=== PATIENT | male | born 1985 | race Caucasian/White ===

== ENCOUNTER 2022-09-23 13:41 | Outpatient (CLI) | payer OTHER, SELFPAY | END 2022-09-23 13:42 | disposition home or self-care (01) | LOC: LKVREF 13:41 | PROVIDERS: PCP Family Medicine; Visit Provider Family Medicine | DX: Z00.00 Encounter for general adult medical examination without abnormal findings (principal); R79.89 Other specified abnormal findings of blood chemistry; R53.83 Other fatigue; I10 Essential (primary) hypertension | CPT/HCPCS: 80076 ==

== ENCOUNTER 2023-01-02 08:38 | Outpatient (CLI) | payer OTHER, SELFPAY | END 2023-01-02 08:39 | disposition home or self-care (01) | LOC: LKVREF 08:39 | PROVIDERS: PCP Family Medicine; Visit Provider Family Medicine | DX: K21.9 Gastro-esophageal reflux disease without esophagitis (principal) | CPT/HCPCS: 87338 ==

== ENCOUNTER 2024-11-09 07:05 | Emergency (ER) | payer BC, SELFPAY ==
--- OUTSIDE RECORDS SUMMARY | 2024-09-26 10:00 | XMS_ITS | Encounter Summary ---
Author Organization [facility] Address [address] [place] [address] Care Team Providers Care Middle [employer] Spanish Teacher Name Role Phone No Primary/Referring, Phy Primary Care Provider Unavailable Reason for Visit * Reason Comments Mask Fit Encounter Details Date Type Department Care Team (Late st Contact Info) Description 09/26/2024 10:00 AM CDT [facility] [place] [facility] [address], [address] [place] [address] Grecia Parish, RT Social History Tobacco Use Types Packs/Day Years Used Date Smoking Tobacco: Never Smokeless Tobacco: Never Alcohol Use Standard Drinks/Week Comments Yes 0 (1 standard drink = 0.6 oz pur e alcohol) monthly PHQ-2 Answer Date Recorded PHQ-2 Score 0 04/28/2021 Sex and Gender Information Value Date Recorded Sex Assigned at Male 01/28/2021 5:27 PM CDT Legal Sex Male 4:50 AM CDT Gender Identity Male 01/28/2021 5:27 PM CDT Sexual Orientation Straight 01/28/2021 5: 27 PM CDT documented as of this encounter Progress Notes * Grecia Parish RT - 09/26/2024 10:00 AM CDT Mask Fit Patient came in for his mask fitting appointment. His current mask does not fit well as he has recently lost 30 lobs, additionally, it has caused a previous sore on the bridge of his nose. Patient not interested in nasal pillows/cushions as he has tried them in the past. He has chosen totry the small N20 nasal cushion - size small, and also try an Airtouch N20 nasal cushion - size small to see which is most comfortable for him. Tried both on in this appointment. Order completed in [facility]. documented in this encounter Plan of Treatment Not on file documented as of this encounter Visit Diagnoses Not on filedocumented in this encounter Care Teams Middle [employer] Spanish Teacher Relationship Specialty Start Date End Date No Primary/Referring, Phy PCP - General 03/03/20 documented as of this encounter
[2024-11-09] VITALS (16 sets, daily range): BP systolic 71–139; BP diastolic 42–78; PULSE 56–77; RESP 16–18; TEMP 36.3; O2SAT 96–100; BMI 26.8
--- OUTSIDE RECORDS SUMMARY | 2024-11-09 07:07 | XMS_ITS | Clinical Summary ---
Author Organization [facility] Address [address] [place] [address] Care Team Providers Care Chief Dispatcher Service Name Role Phone Pcp, No Primary Care Provider Unavailabl e Allergies No known active allergies Social History Tobacco Use Types Packs/Day Years Used Date Smoking Tobacco: Never Assessed Sex and Gender Information Value Date Recorded Sex Assigned at Not on file Legal Sex Male 9:15 AM CDT Gender Identity Not on file Sexual Orientation Not on file Last Filed Vital Signs Vital Sign Reading Time Taken Comments Blood Pressure 109/68 01/18/2021 10:42 AM CDT Pulse 88 01/18/2021 10:42 AM CDT Temperature 36.8 C (98.2 F) 01/18/2021 9:27 AM CDT Respiratory Rate 16 01/18/2021 9:27 AM CDT Oxygen Saturation 95% 01/18/2021 10:42 AM CDT Inhaled Oxygen Concentration - - Weight 113.4 kg (250 lb) 01/18/2021 9:27 AM CDT Height 172.7 cm (5' 8) 01/18/2021 9:27 AM CDT Body Mass Index 38.01 01/18/2021 9:27 AM CDT Plan of Treatment Health Maintenance Due Date Last Done Comments (IA) Tdap 1996 Depression screening for age 12+ 1997 HIV for age 15-65 2000 BMI (ht and wt on same day) for age 18+ 07/29/2003 Hepatitis C screening for ag e 18-79 07/29/2003 Hepatitis B series for 19+ ( 1 of 3 - 19+ 3-dose series) 2004 Tetanus booster 2005 Lipids for age 35-44 2020 COVID-19 vaccine series ( season) 2023 04/13/2021 Influenza Vaccine (Season Ended) 2024 Pneumococcal series for age 6-49 Aged Out No longer eligible based on patient's age to complete this topic Care Teams Chief Dispatcher Service Relationship Specialty Start Date End Date Pcp, No . PCP - General 04/18/24
--- OUTSIDE RECORDS SUMMARY | 2024-11-09 07:07 | XMS_ITS | Clinical Summary ---
Author Organization [facility] Address [address] [place] [address] Care Team Providers Care Human Relations Manager Name Role Phone No Primary/Referring, Phy Primary Care Provider Unavailable Source Comments You are receiving this document as you are listed as the primary care provider,follow-up provider, or the patient has been referred to you for consultation.This is in compliance with the Medicare and[facility] EHR Incentive Program,which states Providers who transition their patient to another setting of careor provider of care or refers their patient to another provider of care shouldprovide summary care record for each transition of care or referral. [employer] Allergies No known active allergies Medications cetirizine (AKA ZYRTEC) 10 MG tablet Take 1 Tablet (10 mg) by mouth daily. 4 Active fluticasone (FLOVENT HFA) 44 mcg/actuation inhalerIndication s:Mild intermittent asthma with exacerbation (HRC) Inhale 2 Puffs two times a day. Rinse mouth/gargle after use 1 Each 2 0 Active fluticasone propionate (FLONASE) 50 MCG/ACT nasal solutionIndicatio ns:Allergic rhinitis, unspecified seasonality, unspecified trigger,Encounter for medication refill Place 2 Sprays into both nostrils daily for 90 days. 48 g 2 Active ALBUterol sulfate HFA 108 (90 Base) MCG/ACT inhalerIndication s:Asthma, unspecified asthma severity, unspecified whether complicated, unspecified whether persistent (HRC) Inhale 2 Puffs every 6 hours as needed for Wheezing (Inhale 2 puffs every 6 hours as needed for Wheezing.). 1 Each 2 Active Active Problems Problem Noted Date Diagnosed Date Moderate obstructive sleep apnea 09/24/2020 Overview (09/24/2020): Setting: Auto 08/22 Supplied by: Lilian Urrutia PSG done: 09-03-20 HST RDI/DULCE 26.9 Lowest O2 Sat: 85% Essential (primary) hypertension 07/15/2020 Asthma 09/14/2002 Overview (11/30/2016): Asthma NOS Allergic rhinitis 09/14/2002 Overview (11/30/2016): Rhinitis Allergic NOS Resolved Problems Problem Noted Date Diagnosed Date Resolved Date Elevated TSH 02/07/2017 07/15/2020 Encounters Date Type Department Care Team Description 10/28/2024 [facility] [employer] [place] [address] Tatianna Nagy PA-C UPDATE 09/26/2024 10:00 AM CDT Home Medical Services [facility] [address], [address] [place] [address] Grecia Parish RT 09/17/2024 9:00 AM CDT [facility] [address] [facility] [address] [place] [address] Rebecca Nguyen, REFINERY OPERATOR HELPER CRUDE UNIT, RESULTS ENGINEER Moderate obstructive sleep apnea (Primary Dx); Overweight (BMI 25.0-29.9) (HRC); Essential hypertension (HRC) 09/16/2024 [facility] [address] [place] [address] Tatianna Nagy PAAva Medication Questions (Patient is calling asking if he should be stopping the lisinopril his bp today 97/63 100/64. His weight is down to 187.4 today. ) from Last 3 Months Immunizations Immunization Administration Dates Next Due DTP 10/29/1990, 8,01/30/1986,1985,1985 Flu Vac (3+ yrs) 01/02/2012 Flu Vac Preserv Free (3+yrs) 12/09/2017, 01/02/2012,01/22/2010,2008 Flublok (RIV4) 01/24/2020 HepB Adult (Engerix-B, 20+ y rs, 3 dose series) 06/11/1996,01/12/1996,12/07/1995 Hib (ActHIB) 08/10/1987 Influenza IIV4 (Quadrivalent ) 0.5mL ([id number]) 01/23/2020,01/21/2019,12/09/2017,2016 Influenza, Unspecified Formulation 01/22,03/13/2000,01/25/1999,1997,02/07/1997,01/30/1996,02/03/1995,1 04/30/1993,02/01/1994 MMR 09/29/1997,11/12/1986 Moderna Monovalent 12+ 06/02/2020,05/05/2020 Moderna Monovalent Booster 12+ 04/13/2021 OPV, Trivalent (Orimune or tOPV) 991,08/10/1987,1985,1985 PPSV23 (Pneumovax) 04/28/2021 TDAP (ADACEL) 02/12/2007 Td 09/29/1997 Tdap 02/07/2014 Family History Medical History Relation Name Comments Cancer Mother Ciara Villafana Passed in 2010 Diabetes Paternal Grandfather Dad Cataract Negative Family History Glaucoma Negative Family History Macular Degeneration Negative Family History Retinal Detachment Negative Family History Relation Name Status Comments Father Alive Mother Ciara Villafana Alive Paternal Grandfather Dad Social History Tobacco Use Types Packs/Day Years [...] Orientation Straight 01/28/2021 5: 27 PM CDT Last Filed Vital Signs Vital Sign Reading Time Taken Comments Blood Pressure 110/65 07/24/2024 12:27 PM CDT Pulse 71 07/24/2024 12:27 PM CDT Temperature 36.9 C (98.4 F) 07/20/2021 7:26 AM CDT Respiratory Rate 18 07/20/2021 9:46 AM CDT Oxygen Saturation 96% 07/20/2021 9:4 6 AM CDT Inhaled Oxygen Concentration - - Weight 84.8 kg (187 lb) 09/17/2024 9:12 AM CDT Patient reported Height 170.2 cm (5' 7) 09/17/2024 9:12 AM CDT Body Mass Index 29.29 09/17/2024 9:12 AM CDT Plan of Treatment Health Maintenance Due Date Last Done Comments Hep C Screening (Preventive Services) 1985 HIV Screening (Preventive Services) 2001 Adult Preventive Visit 07/29/2003 Pneumococcal Vaccine (2 of 2 - PCV) 04/28/2022 04/28/2021 COVID-19 Vaccine ( - season) 2023 04/18/2022, 04/13/2021, 06/02/2020, Additional history exists Influenza Vaccine (#1) 2024 , 01/31/2021, 01/24/2020, Additional history exists Diabetes Screening- (based on age and BMI) 07/25/2025 07/25/2022, 07/15/2020 Asthma ACT (score of 20 or higher) 09/17/2025 09/17/2024, 09/16/2024, 06/23/2022, Additional history exists Cholesterol 07/24/2029 07/24/2024, 07/09, 06/21/2019, Additional history exists DTaP/Tdap/Td Vaccine (9 - Tdap) 09/23/2032 09/23/2022, 02/07/2014, 02/12/2007, Additional history exists Zoster/Shingles Vaccine (1 of 2) 07/29/2035 Hib Vaccine Completed 08/10/1987 IPV (Polio) Vaccine Completed 10/29/1990, 08/10/1987, 1985, Additional history exists HepB Vaccine Completed 06/11/1996, 07/1995, 12/07/1995 HPV Vaccine Aged Out No longer eligi ble based on patient's age to complete this topic HepA Vaccine Aged Out No longer eligi ble based on patient's age to complete this topic MCV4 Vaccine Aged Out No longer eligi ble based on patient's age to complete this topic Meningococcal B Vaccine Aged Out No l onger eligible based on patient's age to complete this topic Procedures Procedure Name Priority Date/Time Associated Diagnosis Comments LIPID PANEL & DIRECT LDL (IF NEEDED) Routine 07/24/2024 12:43 PM CDT Essential (primary) hypertension from Last 3 Months or Most Recently Relevant to Health Maintenance Results * Lipid Panel and Direct LDL (If Needed) (07/24/2024 12:43 PM CDT) Cholesterol 164 0 - 199 mg/dL 07/24/2024 1:24 PM CDT [facility] Triglyceride 81 <=149 mg/dL 07/24/2024 1:24 PM CDT [facility] HDL Cholesterol 49 >=40 mg/dL 1:24 PM CDT [facility] LDL, Calculated 99 <130 mg/dL 1:24 PM CDT [facility] Non HDL Chol, Calculated 115 <=159 mg/dL 07/24/2024 1:24 PM CDT [facility] Cholesterol/HDL Ratio 3.3 <=5.0 07/24/2024 1:24 PM CDT [facility] Hours Fasting 12.0 8 - 12 Hours 07/24/2024 1:24 PM CDT [facility] Blood Venipuncture / Unknown 07/24/2024 12:43 PM CDT 07/24/2024 12:51 PM CDT us Tatianna H Budge PA-C LAB_1 Final Resul t [facility] [address] [place] [address], [facility] from Last 3 Months or Most Recently Relevant to Health Maintenance Insurance [facility] Care Teams Human Relations Manager Relationship Specialty Start Date End Date No Primary/Referring, Phy PCP - General 03/03/20
--- OUTSIDE RECORDS SUMMARY | 2024-11-09 07:07 | XMS_ITS | Clinical Summary ---
Author Organization [facility] Address [address] [place] [address] Care Team Providers Care Silk Spotter Name Role Phone Fred Donahue MD Primary Care Provider Unav ailable Allergies No known active allergies Medications FLONASE INHA 50 MCG/DOSE NAIndications:A cute maxillary sinusitis INHALE 2 SPRAYS IN EACH NOSTRIL ONCE DAILY 1 MONTHS 3 04/20/2008 Active Social History Tobacco Use Types Packs/Day Years Used Date Smoking Tobacco: Never Smokeless Tobacco: Never Alcohol Use Standard Drinks/Week Comments Yes 0 (1 standard drink = 0.6 oz pur e alcohol) Sex and Gender Information Value Date Recorded Sex Assigned at Male 09/16/2023 4:52 PM CDT Legal 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 [employer] Gender Identity Male 09/16/2023 4:52 PM CDT Sexual Orientation Straight 09/16/2023 4: 52 PM CDT Last Filed Vital Signs Vital Sign Reading Time Taken Comments Blood Pressure 157/98 02/07/2017 8:56 PM CDT Pulse 104 02/07/2017 8:56 PM CDT Temperature 36.7 C (98 F) 02/07/2017 8:56 PM CDT Respiratory Rate 18 02/07/2017 8:56 PM CDT Oxygen Saturation 99% 02/07/2017 8:56 PM CDT Inhaled Oxygen Concentration - - Weight 96.6 kg (213 lb) 02/07/2017 8:56 PM CDT Height 170.2 cm (5' 7) 02/07/2017 8:56 PM CDT Body Mass Index 33.36 02/07/2017 8:56 PM CDT Plan of Treatment Not on file Insurance [employer] Care Teams Silk Spotter Relationship Specialty Start Date End Date Fred Donahue MD PCP - General Cardiology 02/07/17
--- OUTSIDE RECORDS SUMMARY | 2024-11-09 07:07 | XMS_ITS | Encounter Summary ---
Author Organization [facility] Address [address] [place] [address] Care Team Providers Care Hogshead Press Operator Name Role Phone No Primary/Referring, Phy Primary Care Provider Unavailable Reason for Visit * Reason Comments UPDATE Encounter Details Date Type Department Care Team (Late st Contact Info) Description 10/28/2024 [facility]phone [facility] Cardiology [address] [place] [address] Tatianna Nagy PA-C [address] [place], [place] [id number] UPDATE Social History Tobacco Use Types Packs/Day Years [...] PM CDT documented as of this encounter Nursing Notes * Johanna Byers RN - 10/30/2024 4:31 PM CDT Spoke with patient. Reviewed information below. Patient verbalized understanding. * Johanna Byers RN - 10/30/2024 4:29 PM CDT Images from the original note were not included. Tatianna Nagy PA-C You2 hours ago (1:59 PM) Looks great! No changes! BB * Johanna Byers RN - 10/28/2024 3:58 PM CDT Patient called today with update on his BP's since stopping lisinopril. Patient states he has been feeling well and is running daily. Patient's BP's are as follows: 10/21/24 120/78 10/26/24 130/72 10/28/24 132/80 Patient states that he is taking his BP's several times per day and states his systolic usually runs in the 130's and his diastolic is running between high 70's and low 80's. Please advise with any recommendations. documented in this encounter Plan of Treatment Not on file documented as of this encounter Visit Diagnoses Not on filedocumented in this encounter Care Teams Hogshead Press Operator Relationship Specialty Start Date End Date No Primary/Referring, Phy PCP - General 03/03/20 documented as of this encounter
--- NOTE | 2024-11-09 07:20 | ED_ITS ---
[facility] Medical History Irritated nevus ?D22.9 - Melanocytic nevi, unspecified (ICD-10) Allergic rhinitis ?J30.9 - Allergic rhinitis, unspecified (ICD-10) Asthma ?J45.909 - Unspecified asthma, uncomplicated (ICD-10) Family History Other Breast cancer Diabetes Social History Narrative: Employed sales promotion officer Smoking Status: Never smoker Exam Const: Vital Signs, click to edit/add: Vital Signs - 24 hr 11/09/24 07:07 Temperature 97.3 F L Pulse Rate [Pulse Oximeter] 65 Respiratory Rate 18 Blood Pressure [Ri ght Upper Arm] 139/78 Pulse Oximetry 99 Oxygen Delivery Me thod Room Air Course Vital Signs Vital signs: Initial Vital Signs Temperature 97.3 F L 11/09/24 07:07 Temperature Source Temporal Artery Scan 11/09/24 07:07 Pulse Rate 65 11/09/24 07:07 Respiratory Rate 18 11/09/24 07:07 Blood Pressure 139/78 11/09/24 07:07 Blood Pressure Mean 98 11/09/24 07:07 Blood Pressure Position Sitting 11/09/24 07:07 Pulse Oximetry 99 11/09/24 07:07 Oxygen Delivery Method Room Air 11/09/24 07:07 Vital Signs Temperature 97.3 F L 11/09/24 07:07 Pulse Rate 65 11/09/24 07:07 Respiratory Rate 18 11/09/24 07:07 Blood Pressure 139/78 11/09/24 07:07 Pulse Oximetry 99 11/09/24 07:07 Oxygen Delivery Method Room Air 11/09/24 07:07 Temperature 97.3 F L 11/09/24 07:07 Pulse Rate 65 11/09/24 07:07 Respiratory Rate 18 11/09/24 07:07 Blood Pressure 139/78 11/09/24 07:07 Pulse Oximetry 99 11/09/24 07:07 Oxygen Delivery Method Room Air 11/09/24 07:07 Discharge Plan Discharge Prescriptions: No Action All Day Allergy (cetirizine) 10 mg capsule 10 mg PO QDAY multivitamin [Daily Multi-Vitamin] Tablet 1 tab PO QAM fluticasone propionate [Flovent HFA] 110 mcg/actuation HFA aerosol inhaler 2 puff inhalation BID Qty: 3 4RF amoxicillin 875 mg tablet 875 mg PO BID fluticasone propionate 50 mcg/actuation spray,suspension 2 spray intranasal QDAY Qty: 16 2RF Rx Instructions: administer into each nostril Follow Up/Referrals: Brad Tejada MD [Primary Care Provider, Family Practice]
--- NOTE | 2024-11-09 07:21 | ED.GENADULT ---
HPI - General Adult General Time Seen by Provider: 07:21 Date Seen: 11/09/24 Chief complaint: Epistaxis/Nosebleed Stated complaint: bloody nose Time Seen by Provider: 11/09/24 07:20 Source: patient Mode of arrival: ambulatory History of Present Illness HPI narrative: Chris is a 39-year-old male recently status post a nasal turbinate reduction approximately 5 week ago and he can who presents the emergency department for evaluation of epistaxis. Patient states that this morning at the end of his work shift he bent over to pick something up and started bleeding from his left naris. Patient states that this started around 6:00 a.m., as ongoing bleeding since then. Patient denies any trauma, injury, states that he has been healing well from his procedure, has a follow-up appointment with his surgeon on . Patient is not on chronic anticoagulation, no other complaints. Related Data Home Medications ?Medication ?Instructions ?Recorded ?Confirmed cetirizine 10 mg capsule (All Day 10 mg PO QDAY 10/25/21 11/09/24 Allergy (cetirizine)) multivitamin (Daily Multi-Vitamin 1 tab PO QAM 10/25/21 11/09/24 tablet) amoxicillin 875 mg tablet 875 mg PO BID 07/22/24 07/22/24 Previous Rx's ?Medication ?Instructions ?Recorded fluticasone propionate 110 2 puff inhalation BID #3 ea 09/23/22 mcg/actuation HFA aerosol inhaler (Flovent HFA) fluticasone propionate 50 2 spray intranasal QDAY #16 grams 09/08/23 mcg/actuation nasal spray,suspension Allergies Allergy/AdvReac Type Severity Reaction Status Date / Time No Known Drug Allergies Allergy Verified 11/09/24 07:13 [facility] Medical History Irritated nevus ?D22.9 - Melanocytic nevi, unspecified (ICD-10) Allergic rhinitis ?J30.9 - Allergic rhinitis, unspecified (ICD-10) Asthma ?J45.909 - Unspecified asthma, uncomplicated (ICD-10) Family History Other Breast cancer Diabetes Social History Narrative: 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 Bilateral nares with epi stat axis, left greater than right Neck: non-tender, supple Cardio: regular rate. regular rhythm Resp: Normal work of breathing, no respiratory distress, lungs clear bilaterally, no wheezing, rhonchi, rales Chest/Back: no visual signs of trauma, no midline tenderness, no CVA tenderness Abdomen: soft, non distension, no tenderness, no peritoneal signs Neuro: alert and fully oriented. CN II-XII grossly intact. Grossly normal strength and sensation in all extremities. MSK: no deformities. Normal range of motion Integumentary/Skin: no rash visualized, normal color Psych: normal affect, normal behavior Const: Vital Signs, click to edit/add: Vital Signs - 24 hr 11/09/24 07:07 11/09/24 07:37 11/09/24 07:40 Temperature 97.3 F L Pulse Rate Pulse Rate [Pulse Oximeter] 65 Respiratory Rate 18 Blood Pressure Blood Pressure [Ri ght Upper Arm] 139/78 72/43 L 74/42 L Pulse Oximetry 99 Oxygen Delivery Me thod Room Air 11/09/24 07:45 11/09/24 07:50 11/09/24 07:56 Temperature Pulse Rate 68 Pulse Rate [Pulse Oximeter] 77 Respiratory Rate Blood Pressure 78/51 L Blood Pressure [Ri ght Upper Arm] 71/51 L 78/51 L Pulse Oximetry 100 100 Oxygen Delivery Me thod Room Air 11/09/24 07:57 11/09/24 07:58 11/09/24 08:00 Temperature Pulse Rate 65 59 L 63 Pulse Rate [Pulse Oximeter] Respiratory Rate Blood Pressure 80/56 L Blood Pressure [Ri ght Upper Arm] Pulse Oximetry 100 100 100 Oxygen Delivery Me thod 11/09/24 08:01 Temperature Pulse Rate 64 Pulse Rate [Pulse Oximeter] Respiratory Rate Blood Pressure 99/73 Blood Pressure [Ri ght Upper Arm] Pulse Oximetry 100 Oxygen Delivery Me thod Course Vital Signs Vital signs: Initial Vital Signs Temperature 97.3 F L 11/09/24 07:07 Temperature Source Temporal Artery Scan 11/09/24 07:07 Pulse Rate 65 11/09/24 07:07 Respiratory Rate 18 11/09/24 07:07 Blood Pressure 139/78 11/09/24 07:07 Blood Pressure Mean 98 11/09/24 07:07 Blood Pressure Position Sitting 11/09/24 07:07 Pulse Oximetry 99 11/09/24 07:07 Oxygen Delivery Method Room Air 11/09/24 07:07 Vital Signs Temperature 97.3 F L 11/09/24 07:07 Pulse Rate 65 11/09/24 07:07 Respiratory Rate 18 11/09/24 07:07 Blood Pressure 139/78 11/09/24 07:07 Pulse Oximetry 99 11/09/24 07:07 Oxygen Delivery Method Room Air 11/09/24 07:07 Temperature 97.3 F L 11/09/24 07:07 Pulse Rate 64 11/09/24 08:01 Respiratory Rate 18 11/09/24 07:07 Blood Pressure 99/73 11/09/24 08:01 Pulse Oximetry 100 11/09/24 08:01 Oxygen Delivery Method Room Air 11/09/24 07:45 Medications Administered Medications: Generic Name Dose Route Start Last Admin Trade Name Freq PRN Reason Stop Dose Admin Sodium Chloride 1,000 mls @ 1,000 mls/hr 11/09/24 08:15 11/09/24 07:50 0.9 % Sodium Chloride 1000 Ml IV 11/09/24 09:14 1,000 mls/hr .Q1H NICK Administration Medical Decision Making [facility] Narrative Medical decision making narrative: Chris is a 39-year-old male recently status post a nasal turbinate reduction approximately 5 week ago and he can who presents the emergency department for evaluation of epistaxis. Upon arrival patient is nontoxic appearing, afebrile, in distress secondary to epistaxis. Patient hemodynamically stable vital signs within normal limits. Upon arrival direct pressure was applied by myself to the patient. Approximately 15 minutes into holding direct pressure patient started to feel weak, dizzy, diaphoretic, and had a near syncopal episode. Patient's blood pressure did decrease to systolic in the 70s which improved after lying patient flat, IV hydration. Patient does report improvement of symptoms and did recover from episode. After approximately 30 minutes of holding direct pressure patient had cessation of epistaxis. Patient would like to hold off on Afrin at right this time. Plan for continue close monitoring to see if any recurrent bleeding. Comprehensive labs remarkable for white blood cell count of 6.07, hemoglobin at 12.6, platelets at 264. Patient signed out to Dr. Olivares at change of shift. Lab Data Labs: Lab Results 11/09/24 Range/Units 07:55 WBC 6.07 (4.50-11.00) K/uL RBC 4.57 (4.30-5.90) m/uL Hgb 12.6 L (13.5-17.5) gm/dL Hct 38.8 (37.0-53.0) % MCV 85 (80-100) fL MCH 28 (26-34) pg MCHC 33 (32-36) gm/dL RDW Coeff of Christen 13.9 (11.5-15.5) % Plt Count 264 (140-440) K/uL Neut % (Auto) 51.4 (42.0-72.0) % Lymph % (Auto) 36.1 (20-44) % [place] % (Auto) 9.2 (0.0-11.0) % Eos % (Auto) 2.1 (0.0-7.0) % Baso % (Auto) 1.0 (0.0-3.0) % Neut # (Auto) 3.12 (1.7-7.0) K/uL Lymph # (Auto) 2.19 (0.90-2.90) K/uL [place] # (Auto) 0.60 (0.00-0.90) K/UL Eos # (Auto) 0.13 (0.00-0.50) K/uL Baso # (Auto) 0.06 (0.00-0.30) K/uL Abs Immat Gran (auto) 0.01 (0.00-0.30) K/uL Imm/Tot Granulo (auto) 0.2 % Critical Care Time Critical Care Time Critical Care Time: Yes Attestation: The patient required my highest level preparedness to intervene emergently and I personally spent this critical care time directly and personally managing the patient. This critical care time included: Obtaining a history; Examining the patient; Pulse oximetry; Ordering and reviewing of studies; Arranging urgent treatment with development of a management plan; Evaluation of patients response to treatment; Frequent reassessment discussions with other providers. This critical care time was performed to assess and manage the high probability of imminent life-threatening deterioration that could result in multiorgan failure. It was exclusive of separate billable procedures and treating other patients and teaching time. Total Critical Care Time in Minutes: 35 Discharge Plan Discharge Clinical Impression: Epistaxis Prescriptions: No Action All Day Allergy (cetirizine) 10 mg capsule 10 mg PO QDAY multivitamin [Daily Multi-Vitamin] Tablet 1 tab PO QAM fluticasone propionate [Flovent HFA] 110 mcg/actuation HFA aerosol inhaler 2 puff inhalation BID Qty: 3 4RF amoxicillin 875 mg tablet 875 mg PO BID fluticasone propionate 50 mcg/actuation spray,suspension 2 spray intranasal QDAY Qty: 16 2RF Rx Instructions: administer into each nostril Follow Up/Referrals: Brad Tejada MD [Primary Care Provider, Family Practice]
[2024-11-09 08:04] LABS: Hematocrit 38.8 % (37.0-53.0); Hemoglobin* 12.6 gm/dL (13.5-17.5); Immature Granulocytes Abs Auto 0.01 K/uL (0.00-0.30); Immature Granulocytes Pct Auto 0.2 %; Lymphocytes Absolute Auto 2.19 K/uL (0.90-2.90); Mean Corpuscular HGB Conc 33 gm/dL (32-36); Mean Corpuscular Hemoglobin 28 pg (26-34); Mean Corpuscular Volume 85 fL (80-100); RDW Coefficient of Variation % 13.9 % (11.5-15.5); Red Blood Count 4.57 m/uL (4.30-5.90); White Blood Count* 6.07 K/uL (4.50-11.00)
[2024-11-09 08:09] LABS: Slide Review Reflex No
[2024-11-09] MEDS: OXYMETAZOLINE 0.05% NASAL SPRAY 1 SPRAY NOSTRIL-B (08:20)
== END 2024-11-09 09:53 | disposition home or self-care (01) ==
PROVIDERS: Emergency Medicine; Emergency Provider Student in an Organized Health Care Education/Training Program; PCP Family Medicine
DX: R04.0 Epistaxis (principal)
CPT/HCPCS: 36415; 85025; 99285; 99291; J7030